=== PATIENT | male | born 1995 | race African-American/Black ===

== ENCOUNTER 2022-03-23 10:15 | Emergency (ER) | payer SELFPAY ==
[~2022-03-23] VITALS: Ht 172.7 cm; Wt 76.0 kg
[2022-03-23 10:17] VITALS: BP 133/77
== END 2022-03-23 14:04 | disposition left against medical advice (07) ==
LOC: ER 10:22
DX: Z53.21 Procedure and treatment not carried out due to patient leaving prior to being seen by health care provider (principal)
CPT/HCPCS: 99283